=== PATIENT | male | born 1980 | race Caucasian/White ===

== ENCOUNTER → 2021-02-02 08:56 | Outpatient (CLI) | payer OTHER, SELFPAY ==
--- NOTE | ~2021-02-02 | MR_ITS ---
EXAMINATION: MR thoracic spine wo con EXAM DATE: 02/02/2021 09:47 INDICATION: Low back pain, chronic. TECHNIQUE: Multi-sequential, multiplanar MR images of the thoracic spine were obtained without contra st. Sagittal T1, T2, T2 fat saturation, axial T2 weighted images reviewed. There is no prior study for comparison. FINDINGS: There is focal fluid signal intensity in the central aspect of the cervical spinal canal at the C5-6 level, measuring about 1.2 cm in length. Probably this is small focal syrinx but dedicated cervical spine MRI without and with contrast should be obtained if this has not previously been evalu ated. There is mild disc disease from T7 T8-T12 with small Schmorl's nodes, mild loss of the disc hei ght. There is mild diffuse thoracic facet arthropathy. The vertebral bodies are aligned in the AP dim ension. There are no suspicious marrow signal abnormalities. Paraspinal soft tissue is unremarkabl e. IMPRESSION: 1. 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 Recommend MR cervic al spine without and with contrast if not previously evaluated. 2. Mild thoracic spondylosis. Reviewed, dictated and finalized at location B. FUELER IMPRESSION: 1. 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 Recommend MR cervical spine without and with contrast if not previously eval uated. 2. Mild thoracic spondylosis.
--- NOTE | ~2021-02-02 | MR_ITS ---
EXAMINATION: MR lumbar spine wo con DATE: 02/02/2021 09:59 INDICATION: Low back pain. TECHNIQUE: Magnetic resonance imaging (MRI) of the lumbar spine was performed without intravenous con trast. Sequences included sagittal T2-weighted FSE, sagittal T2-weighted FS FSE, sagittal T1-weighted FSE, and axial T2-weighted FSE. COMPARISON: None FINDINGS: There is 3 mm retrolisthesis of L5 on S1. There is a Schmorl's node of superior endplate of L3. There is moderately decreased disc at L5-S1 with endplate remodeling. The distal spinal cord sig nal intensity is normal. The conus medullaris is at L1. The following disc levels are specifically di scussed: L1-L2: The disc does not extend beyond the endplate margin. There is mild bilateral facet joint osteo arthritis. There is no neural foraminal stenosis. There is no central canal stenosis. L2-L3: The disc does not extend beyond the endplate margin. There is no facet joint osteoarthritis. T here is no neural foraminal stenosis. There is no central canal stenosis. L3-L4: The disc does not extend beyond the endplate margin. There is mild bilateral facet joint osteo arthritis. There is no neural foraminal stenosis. There is no central canal stenosis. L4-L5: The disc is bulging and has an annular fissure. There is mild bilateral facet joint osteoarthr itis. There is mild bilateral neural foraminal stenosis. There is no central canal stenosis. L5-S1: The disc is bulging and has an annular fissure. There is mild bilateral facet joint osteoarthr itis. There is mild bilateral neural foraminal stenosis. There is mild central canal stenosis. IMPRESSION: 1. Moderate lower lumbar spondylosis. Reviewed, dictated and finalized at location A. REP
== END ==
DX: M54.50 Low back pain, unspecified (principal); M47.814 Spondylosis without myelopathy or radiculopathy, thoracic region; M47.816 Spondylosis without myelopathy or radiculopathy, lumbar region
CPT/HCPCS: 72146; 72148